=== PATIENT | female | born 2000 | race Hispanic/Latino ===

== ENCOUNTER 2019-05-29 14:14 | Outpatient (CLI) | payer MEDICAID ==
--- NOTE | 2019-05-29 14:55 | ULT ---
COMPLETE BILATERAL RENAL ULTRASOUND: HISTORY: Bilateral flank pain for two days which has resolved. The patient is 12 weeks' . FINDINGS: The right kidney measures 10.5 x 4.3 x 4.9 cm. The left kidney measures 10.6 x 4.9 x 5.8 cm. No renal hydronephrosis. Early intrauterine . Urinary bladder is unremarkable. IMPRESSION: Unremarkable bilateral renal ultrasound. No hydronephrosis. Evidence for an early intrauterine pregna ncy. POS: OFF
== END 2019-05-29 14:15 | disposition home or self-care (01) ==
LOC: SCSULT 14:14
PROVIDERS: ATTEND Advanced Practice Midwife
DX: O99.89 Other specified diseases and conditions complicating pregnancy, childbirth and the puerperium (principal); M54.5 Low back pain; Z3A.12 12 weeks gestation of pregnancy
CPT/HCPCS: 76770